=== PATIENT | female | born 1950 | race Hispanic/Latino ===

== ENCOUNTER → 2019-05-02 | Outpatient (CLI) | payer OTHER | END | disposition home or self-care (01) | LOC: RAH 08:25 | PROVIDERS: ATTEND Family Medicine | DX: R80.9 Proteinuria, unspecified (principal) | CPT/HCPCS: 76770 ==

== ENCOUNTER 2021-07-26 21:13 | Emergency (ER) | payer OTHER ==
[~2021-07-26] VITALS: Ht 157.5 cm; Wt 90.7 kg
[~2021-07-26 21:13] MED LIST: ACET-3194 PO; ALEN70TA80 PO; AMLO-258 PO; ATOR10 PO; Vitamin D PO
[2021-07-26] MEDS ORDERED: HYDROCODONE/ACETAMINOPHEN 10/325 MG TAB PO ONE (21:30)
[2021-07-26] MEDS ORDERED: HYDROCODONE/ACETAMINOPHEN 10/325 MG TAB ONE (22:14)
[2021-07-26] MEDS ORDERED: ACET-2247 PO (22:18)
[2021-07-26 22:58] VITALS: BP 146/85
== END 2021-07-26 22:59 | disposition home or self-care (01) ==
LOC: EDH 21:13
DX: S82.62XA Displaced fracture of lateral malleolus of left fibula, initial encounter for closed fracture (principal); I10 Essential (primary) hypertension; Z79.899 Other long term (current) drug therapy; X50.1XXA Overexertion from prolonged static or awkward postures, initial encounter; Y93.89 Activity, other specified; Y92.89 Other specified places as the place of occurrence of the external cause; Y99.8 Other external cause status
CPT/HCPCS: 29125; 29515; 73610

== ENCOUNTER 2022-04-29 08:48 | Observation (INO) | payer OTHER ==
[2022-04-27 12:01] VITALS: BP 190/86
[2022-04-27 14:06] LABS: BASOPHILS % (AUTO) 0.8 % (0.0-5.0); EOSINOPHILS % (AUTO) 1.8 % (0.0-8.0); LYMPHOCYTES % (AUTO) 31.6 % (21.0-51.0); MEAN CORPUSCULAR HGB CONC 32.5 g/dL (32.0-36.0); MEAN CORPUSCULAR VOLUME 89.3 fL (79-99); MONOCYTES % (AUTO) 6.6 % (3.0-13.0); PLATELET COUNT (AUTO) 312 K/uL (130-400); RED BLOOD CELL COUNT(AUTO) 4.03 MIL/uL (4.00-5.50); RED CELL DISTRIBUTION WIDTH 13.6 % (11.0-15.5)
[2022-04-27 14:09] LABS: APPEARANCE,URINE SL CLOUDY (CLEAR); BILIRUBIN,URINE NEGATIVE (NEGATIVE); COLOR,URINE YELLOW (YELLOW); GLUCOSE, URINE (UA) NEGATIVE (NEGATIVE); KETONES,URINE 15 mg/dL (NEGATIVE); LEUKOCYTE ESTERASE ,URINE NEGATIVE (NEGATIVE); NITRATE,URINE NEGATIVE (NEGATIVE); OCCULT BLOOD,URINE TRACE-INTACT (NEGATIVE); PROTEIN,URINE 30 mg/dL (NEGATIVE); UROBILINOGEN,URINE 0.2 mg/dL (0.2-1.0)
[2022-04-27 14:16] LABS: CREATININE 0.7 mg/dL (0.5-1.5); POTASSIUM 3.6 mmol/L (3.5-5.1)
[2022-04-27 14:18] LABS: INR 0.97 (0.85-1.15); PROTHROMBIN TIME 10.6 SEC (9.6-11.6)
[2022-04-27 14:23] LABS: RBC,URINE 0-1 /HPF (0-1)
[2022-04-27 14:25] LABS: BACTERIA,URINE Few /HPF (None Seen); MUCUS,URINE Few LPF (None Seen); SQUAMOUS EPITHELIAL CELL,UR Rare /HPF (0-2)
[2022-04-29] VITALS (25 sets, daily range): BP systolic 76–158; BP diastolic 48–90
[~2022-04-29] VITALS: Ht 157.5 cm; Wt 87.1 kg
[~2022-04-29 08:48] MED LIST changes: +ACET-2247 PO; +CEFAZOLIN SODIUM 1 GM VIAL IVP SCH
[2022-04-29] MEDS ORDERED: LACTATED RINGERS 1000ML 1,000 ML IV ONE (10:01)
[2022-04-29] MEDS ORDERED: CHOL500045 PO (10:08)
[2022-04-29] MEDS ORDERED: CALC-1125 PO (10:08)
[2022-04-29] MEDS ORDERED: GLYCOPYRROLATE 1 MG/5 ML SYRINGE ONE (12:31)
[2022-04-29] MEDS ORDERED: LIDOCAINE PF 100MG/5ML (2%) SYRINGE 5ML ONE (12:31)
[2022-04-29] MEDS ORDERED: PROPOFOL 10 MG/ML 20ML VIAL IV ONE (12:31)
[2022-04-29] MEDS ORDERED: ROCURONIUM 10MG/1ML SYR 10 MG/ML ML ONE (12:31)
[2022-04-29] MEDS ORDERED: NEOSTIGMINE 5MG/5ML SYR IV ONE (12:31)
[2022-04-29] MEDS ORDERED: FENTANYL CITRATE PF 50 MCG/1 ML 2ML VIAL ONE ×2 (12:31→14:21)
[2022-04-29] MEDS ORDERED: MIDAZOLAM HCL 1 MG/ML 2ML VIAL ONE (12:31)
[2022-04-29] MEDS ORDERED: ONDANSETRON 4MG INJ ONE (12:31)
[2022-04-29] MEDS ORDERED: SUCCINYLCHOLINE CHLORIDE 20 MG/ML 10 ML VIAL ONE ×2 (12:31→12:32)
[2022-04-29] MEDS ORDERED: DEXAMETHASONE SOD PHOSPHATE 10MG/ML 1ML VIAL ONE (12:31)
[2022-04-29] MEDS ORDERED: ROPIVACAINE 0.5% 5MG/ML 30ML IJ ONE (12:40)
[2022-04-29] MEDS ORDERED: TRANEXAMIC ACID 1000MG/10ML ONE ×2 (12:41→15:11)
[2022-04-29] MEDS ORDERED: CEFAZOLIN SODIUM 1 GM VIAL ONE (12:41)
[2022-04-29] MEDS ORDERED: CEFAZOLIN SODIUM 2 GM VIAL IV ONE (12:45)
[2022-04-29] MEDS ORDERED: TRANEXAMIC ACID 1000MG/10ML IV ONE (13:05)
[2022-04-29] MEDS ORDERED: CEFAZOLIN SODIUM 1 GM VIAL IRRIG ONE (13:22)
[2022-04-29] MEDS: ACETAMINOPHEN 500 MG TABLET PO SCH ×2 (15:00→20:53)
[2022-04-29] MEDS ORDERED: TRAMADOL HCL 50 MG TABLET PO PRN (15:00)
[2022-04-29] MEDS ORDERED: DiphenhydrAMINE HCL 50 MG/ML VIAL IVP PRN (15:00)
[2022-04-29] MEDS ORDERED: CALCIUM CARB 500MG PO PRN (15:00)
[2022-04-29] MEDS ORDERED: FERROUS FUMARATE 324 MG TABLET PO PRN (15:00)
[2022-04-29] MEDS ORDERED: POTASSIUM CHLORIDE 10% ELIXIR 20 MEQ/15 ML UDCUP PO PRN (15:00)
[2022-04-29] MEDS ORDERED: LIDOCAINE HCL-MPF 1% 2ML VIAL IV PRN (15:00)
[2022-04-29] MEDS ORDERED: OXYCODONE HCL 5 MG TAB PO PRN (15:00)
[2022-04-29] MEDS ORDERED: POTASSIUM CHLORIDE 20MEQ/100ML 100 ML IV PRN (15:00)
[2022-04-29] MEDS: EPHEDRINE SULFATE 50 MG/ML AMPULE ONE ×2 (15:42→15:45)
[2022-04-29] MEDS: 0.9%NACL 1000ML 1,000 ML IV SCH (16:30)
[2022-04-29] MEDS: ONDANSETRON 4MG INJ IVP PRN (18:51)
[2022-04-29] MEDS: KETOROLAC 15MG/ML VIAL (15MG/ML) IV PRN (20:08)
[2022-04-29] MEDS: ASPIRIN 81 MG EC TAB PO SCH (20:52)
[2022-04-29] MEDS: CELECOXIB 200 MG CAP PO SCH (20:52)
[2022-04-29] MEDS: CEFAZOLIN SODIUM 1 GM VIAL IVP SCH (20:52)
[2022-04-30] VITALS: BP 157/64
[2022-04-30] MEDS: 0.9%NACL 1000ML 1,000 ML IV SCH ×2 (00:17→11:00)
[2022-04-30 04:00] VITALS: BP 143/63
[2022-04-30] MEDS: CEFAZOLIN SODIUM 1 GM VIAL IVP SCH (04:35)
[2022-04-30 04:41] LABS: MEAN CORPUSCULAR HEMOGLOBIN 28.3 pg (27.0-33.0); MEAN CORPUSCULAR HGB CONC 32.5 g/dL (32.0-36.0); MEAN CORPUSCULAR VOLUME 87.2 fL (79-99); RED BLOOD CELL COUNT(AUTO) 3.67 MIL/uL (4.00-5.50); RED CELL DISTRIBUTION WIDTH 13.6 % (11.0-15.5); WHITE BLOOD COUNT (AUTO) 11.2 K/uL (4.8-10.8)
[2022-04-30 04:57] LABS: CREATININE 0.7 mg/dL (0.5-1.5)
[2022-04-30] MEDS: ONDANSETRON 4MG INJ IVP PRN (04:57)
[2022-04-30 05:01] LABS: POTASSIUM 2.7 mmol/L (3.5-5.1)
[2022-04-30] MEDS: KCL 20 MEQ ERTAB PO PRN ×3 (05:48→11:48)
[2022-04-30] MEDS: ACETAMINOPHEN 500 MG TABLET PO SCH ×2 (05:53→19:39)
[2022-04-30 08:02] VITALS: BP 132/56
[2022-04-30] MEDS: **HM**Cholecalciferol (Vitamin D3) (Vitamin D3) 125 MCG PO SCH (09:00)
[2022-04-30] MEDS: OXYCODONE HCL 5 MG TAB PO PRN (09:05)
[2022-04-30] MEDS: AMLODIPINE 5 MG TAB PO SCH (09:28)
[2022-04-30] MEDS: ATORVASTATIN 20 MG TABLET PO SCH (09:28)
[2022-04-30] MEDS: CALCIUM CARB 500MG PO SCH (09:28)
[2022-04-30] MEDS: POLYETHYLENE GLYCOL 3350 17 GM POWD.PACK PO SCH (09:29)
[2022-04-30] MEDS: ASPIRIN 81 MG EC TAB PO SCH ×2 (09:29→19:38)
[2022-04-30] MEDS: CELECOXIB 200 MG CAP PO SCH ×2 (09:29→19:38)
[2022-04-30 11:22] VITALS: BP 118/53
[2022-04-30 16:07] VITALS: BP 123/72
[2022-04-30] MEDS: KETOROLAC 15MG/ML VIAL (15MG/ML) IV PRN (19:38)
[2022-04-30 20:00] VITALS: BP 127/56
[2022-05-01] VITALS: BP_SYST 115; BP_SYST 116; BP_DIAS 55; BP_DIAS 57
[2022-05-01 04:00] VITALS: BP 131/53
[2022-05-01] MEDS: ACETAMINOPHEN 500 MG TABLET PO SCH ×2 (04:32→16:26)
[2022-05-01] MEDS: OXYCODONE HCL 5 MG TAB PO PRN (07:50)
[2022-05-01 08:14] VITALS: BP 141/66
[2022-05-01] MEDS: CELECOXIB 200 MG CAP PO SCH (08:39)
[2022-05-01] MEDS: POLYETHYLENE GLYCOL 3350 17 GM POWD.PACK PO SCH (08:39)
[2022-05-01] MEDS: ATORVASTATIN 20 MG TABLET PO SCH (08:40)
[2022-05-01] MEDS: ASPIRIN 81 MG EC TAB PO SCH (08:40)
[2022-05-01] MEDS: AMLODIPINE 5 MG TAB PO SCH (08:40)
[2022-05-01] MEDS: CALCIUM CARB 500MG PO SCH (08:40)
[2022-05-01] MEDS: **HM**Cholecalciferol (Vitamin D3) (Vitamin D3) 125 MCG PO SCH (08:41)
[2022-05-01 09:08] LABS: POTASSIUM 3.5 mmol/L (3.5-5.1)
[2022-05-01] MEDS: KETOROLAC 15MG/ML VIAL (15MG/ML) IV PRN (09:58)
[2022-05-01] MEDS: KCL 20 MEQ ERTAB PO PRN (10:31)
[2022-05-01 11:10] VITALS: BP 129/59
[2022-05-01] MEDS ORDERED: AEC81 PO (15:17)
[2022-05-01] MEDS ORDERED: HYDR-4060 PO (15:17)
[2022-05-01 15:59] VITALS: BP 126/57
[2022-05-02] MEDS ORDERED: BISACODYL 10 MG SUPP.RECT RC PRN (15:00)
[2022-05-06] MEDS ORDERED: ALENDRONATE SODIUM 35 MG TAB PO SCH (09:00)
== END 2022-05-01 17:30 ==
LOC: DAH 08:48 → DAHIP 08:49 → DAH 08:49 → DAHIP 14:45 → UNDOADMOB 14:45 → 4BH 16:33
PROVIDERS: ADMIT Orthopaedic Surgery; ATTEND Orthopaedic Surgery
DX: M17.12 Unilateral primary osteoarthritis, left knee (principal); Z20.822 Contact with and (suspected) exposure to COVID-19; M25.562 Pain in left knee; E87.6 Hypokalemia; M81.0 Age-related osteoporosis without current pathological fracture; R26.9 Unspecified abnormalities of gait and mobility; Z90.710 Acquired absence of both cervix and uterus; Z79.899 Other long term (current) drug therapy; Z98.890 Other specified postprocedural states; Z79.82 Long term (current) use of aspirin
CPT/HCPCS: 27447; 36415 ×3; 64447; 76942; 80048 ×3; 81001; 85025; 85027; 85610; 87088; 87635; 87641; 96365; 96366; 96375; 96376 ×2; 97039 ×4; 97116 ×4; 97161; 97530 ×4; A4215; A4216; A4221; A4222; A4223 ×2; A4600; A4649 ×5; A4663; A5120; A9272; C1776; C9803; G0378 ×46; J0330 ×2; J0690 ×6; J1100; J1885 ×3; J2001; J2250; J2405 ×4; J2704; J2710; J2795; J3010 ×2; J3480; J3490 ×6; J7030 ×3; J7120 ×2